=== PATIENT | female | born 1960 | race Caucasian/White ===

== ENCOUNTER 2016-06-08 11:47 | Emergency (ER) | payer MEDICAID, OTHER ==
--- NOTE | 2016-06-08 12:10 | ER Document Report ---
ED Medical Screen (RME) - General Stated Complaint: ARM PAIN Mode of Arrival: Ambulatory Information source: Patient Notes: Patient fell out of a truck 2 weeks ago. Patient complains of left upper extremity pain. hx: Pseudotumor cerebri I have greeted and performed a rapid initial assessment of this patient. A comprehensive ED assessment and evaluation of the patient, analysis of test results and completion of the medical decision making process will be conducted by additional ED providers. - Related Data Allergies/Adverse Reactions: ranitidine [From Zantac] Allergy (Verified 06/08/16 12:08) strawberry Allergy (Verified 06/08/16 12:08) Physical Exam - Extremities General upper extremity: Tender - Left upper extremity
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
[2016-06-08 14:20] VITALS: BP 131/80
== END 2016-06-08 14:14 | disposition home or self-care (01) ==
LOC: ER 11:47
DX: M79.602 Pain in left arm (principal); R03.0 Elevated blood-pressure reading, without diagnosis of hypertension; F17.210 Nicotine dependence, cigarettes, uncomplicated; X50.0XXA Overexertion from strenuous movement or load, initial encounter; I10 Essential (primary) hypertension
CPT/HCPCS: 99283

== ENCOUNTER 2017-01-31 15:02 | Emergency (ER) | payer OTHER, MEDICAID ==
[2017-01-31 15:12] VITALS: BP 134/87
[2017-01-31] MEDS ORDERED: ONDANSETRON 4 MG TAB.RAPDIS PO ONE (15:38)
[2017-01-31] MEDS ORDERED: HYDROCODONE/ACETAMINOPHEN 5-325 MG TABLET PO ONE (15:38)
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
== END 2017-01-31 17:28 | disposition home or self-care (01) ==
LOC: ER 15:02
DX: S46.911A Strain of unspecified muscle, fascia and tendon at shoulder and upper arm level, right arm, initial encounter (principal); S56.911A Strain of unspecified muscles, fascia and tendons at forearm level, right arm, initial encounter; S16.1XXA Strain of muscle, fascia and tendon at neck level, initial encounter; R51 Headache; M79.601 Pain in right arm; M54.2 Cervicalgia; R11.0 Nausea; V87.7XXA Person injured in collision between other specified motor vehicles (traffic), initial encounter; F17.200 Nicotine dependence, unspecified, uncomplicated
CPT/HCPCS: 99284; 73090; 73060; 70450; 72125; S0119

== ENCOUNTER 2017-04-09 09:56 | Day surgery (SDC) | payer MEDICAID ==
--- NOTE | 2017-04-06 10:53 | EKG REPORT ---
SEVERITY:- ABNORMAL ECG - SINUS RHYTHM INFERIOR INFARCT, OLD CONSIDER ANTERIOR INFARCT : Confirmed by: Tiff Estes 06-Apr-2017 10:53:02
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
[2017-04-06 12:12] LABS: ABSOLUTE EOSINOPHILS # (AUTO) 0.2 10^3/uL (0.0-0.6); ABSOLUTE LYMPHOCYTES (AUTO) 2.4 10^3/uL (0.5-4.7); ABSOLUTE MONOCYTES (AUTO) 0.7 10^3/uL (0.1-1.4); ABSOLUTE NEUT (AUTO) 7.2 10^3/uL (1.7-8.2); BASOPHILS % (AUTO) 0.4 % (0-2); EOSINOPHILS % (AUTO) 1.9 % (0-6); HEMATOCRIT 43.5 % (36.0-47.0); HEMOGLOBIN 14.4 g/dL (12.0-15.5); HGB HCT DIFFERENCE -0.3; LYMPHOCYTES % (AUTO) 22.9 % (13-45); MEAN CORPUSCULAR HEMOGLOBIN 30.6 pg (27.0-33.4); MEAN CORPUSCULAR VOLUME 93 fl (80-97); MONOCYTES % (AUTO) 6.8 % (3-13); RED BLOOD COUNT 4.69 10^6/uL (3.72-5.28); RED CELL DISTRIBUTION WIDTH 15.8 % (11.5-14.0); WHITE BLOOD COUNT 10.5 10^3/uL (4.0-10.5)
[2017-04-06 12:35] LABS: ANION GAP 13 (5-19); BLOOD UREA NITROGEN 9 mg/dL (7-20); CALCIUM 9.9 mg/dL (8.4-10.2); CARBON DIOXIDE 33 mmol/L (22-30); CHLORIDE 100 mmol/L (98-107); GLUCOSE 101 mg/dL (75-110); POTASSIUM 5.5 mmol/L (3.6-5.0); SODIUM 146.3 mmol/L (137-145)
[~2017-04-09 09:56] MED LIST: BUPIVACAINE HCL 0.5%/EPI 1:200000 INJ 1.8 ML CARTRIDGE ONE; LACTATED RINGERS 1000 ML IV PRN; LIDOCAINE 0.5% INJ-PF (5 MG/ML) 50 ML SDV SUBCUT PRN; LIDOCAINE 2%/EPINEPHRINE INJ 1.7 ML CARTRIDGE ONE
[2017-04-09] MEDS ORDERED: FENTANYL CITRATE INJ/PF 100 MCG/2 ML AMPUL ONE (11:21)
[2017-04-09] MEDS ORDERED: MIDAZOLAM 2 MG/2 ML INJ ONE (11:22)
[2017-04-09] MEDS ORDERED: HYDROMORPHONE HCL INJ/PF 2 MG/ML AMPULE ONE (11:22)
[2017-04-09] MEDS ORDERED: PROPOFOL INJ 200 MG/20 ML VIAL IV ONE (11:22)
[2017-04-09] MEDS ORDERED: ACETAMINOPHEN 100 ML IV ONE (11:22)
[2017-04-09] MEDS ORDERED: ALBUTEROL SULFATE 0.083% NEB 2.5 MG/3 ML AMPUL NEB ONE (11:48)
[2017-04-09] MEDS ORDERED: DEXMEDETOMIDINE INJ 80 MCG/20 ML VIAL IV ONE (12:34)
[2017-04-09] MEDS ORDERED: KETAMINE HCL INJ 500 MG/10 ML VIAL ONE (12:34)
[2017-04-09] MEDS ORDERED: LIDOCAINE 2%/EPINEPHRINE INJ 1.7 ML CARTRIDGE ONE (12:57)
[2017-04-09] MEDS ORDERED: MEPERIDINE HCL/PF INJ 25 MG/1 ML DISP.SYRIN IV PRN (13:13)
[2017-04-09] MEDS ORDERED: DIPHENHYDRAMINE HCL 50 MG/ML VIAL IV PRN (13:13)
[2017-04-09] MEDS ORDERED: PROMETHAZINE HCL INJ 25 MG/1 ML VIAL IV PRN ×2 (13:13)
[2017-04-09] MEDS ORDERED: ONDANSETRON HCL INJ/PF 4 MG/2 ML SDV IV PRN (13:13)
[2017-04-09] MEDS ORDERED: FENTANYL CITRATE INJ/PF 100 MCG/2 ML AMPUL IV PRN ×3 (13:13)
[2017-04-09] MEDS ORDERED: ONDANSETRON HCL INJ/PF 4 MG/2 ML SDV ONE ×2 (13:51→14:13)
[2017-04-09] MEDS ORDERED: LIDOCAINE 2% INJ-PF (20 MG/ML) 10 ML AMPUL ONE (14:00)
[2017-04-09] MEDS ORDERED: BUPIVACAINE HCL 0.5%/EPI 1:200000 INJ 1.8 ML CARTRIDGE ONE ×2 (14:05)
--- NOTE | 2017-04-09 14:34 | Brief Operative Note ---
BRIEF OPERATIVE REPORT DATE OF SURGERY: 04/09/17 TIME OF SURGERY: 12:57 PREOPERATIVE DIAGNOSIS: Nonrestorable dentition POSTOPERATIVE DIAGNOSIS: Same as preoperative diagnosis SURGEON: ARNULFO MACHADO FINDINGS: Severe decay with nonrestorable dentition COMPLICATIONS: No complications ESTIMATED BLOOD LOSS: Less than 10 mL's TISSUE REMOVED OR ALTERED: Nonrestorable teeth TECHNICAL PROCEDURE: Patient taken to main operating room #4. Patient was placed in a beachchair position after being transferred to the operating room table. Care of the patient was given to the anesthesia team. Limited monitored anesthesia care was initiated via peripheral IV and maintained via peripheral IV throughout the case. Once an adequate plane of anesthesia was reached local anesthetic consisting of 2% lidocaine with epinephrine 1-100,000, and Marcaine 0.5% with epinephrine 1-200,000 was infiltrated into the patient's posterior mandibular right vestibule as well as obtaining infiltration anesthesia of the maxillary bilateral anterior and posterior vestibules, as well as, the mandibular left anterior mandibular vestibule. Effectiveness of the local anesthetic was confirmed. A #15 blade was utilized to make a full- thickness mucoperiosteal incision extending from the distal of tooth #29 to approximately 3 mm anterior to tooth #22. A #2 for mold was then used to elevate a full-thickness mucoperiosteal flap exposing the facial aspect of teeth #'s29, 27-22 and the surrounding alveolar crest. . A #2 Molt periosteal elevator was utilized to extract the tip of tooth #29 in the standard fashion. A combination of the 301 elevator and the [employer] forcep was then utilized to extract teeth numbers 22 through 27. The extraction site was debrided irrigated and suctioned dry. A sidecutting rongure and a rasp were utilized to perform a alveoloplasty of the mandibular left and right alveolar ridges. The surgical sites were irrigated with copious sterile saline irrigation and suction dry. A 4-0 chromic suture in a baseball style application was used to reapproximate the soft tissue. The surgical site was inspected and irrigated suctioned dry and noted to be free of active hemorrhage or debris. Attention was then directed to the maxillary arch where a #15 santosh was used to elevate focused full thickness flap individually exposing the root tips of teeth #'s 2, 6, 11, 13, 14. Each tooth was removed with a #2 molt periosteal elevator and the extraction site closed with a 4.0 chromic gut suture. All surgical sites were irrigated and suctioned dry noted to be free of active hemorrage or debri. A knotted 4 x 4 surgical gauze was applied to the surgical sites. Occlusal pressure was then allowed to hold the gauze in place. Care of the patient was then returned to the anesthesia team who awakened the patient without complication. The patient was then transported to the postanesthesia care unit with stable vital signs having tolerated the procedure well.
[2017-04-09] MEDS ORDERED: HYDROCODONE/ACETAMINOPHEN 5-325 MG TABLET PO PRN (15:01)
[2017-04-09 17:01] VITALS: BP 116/70
== END 2017-04-09 16:30 | disposition home or self-care (01) ==
LOC: OROUT 09:56
PROVIDERS: ATTEND Dentist Oral and Maxillofacial Surgery
PROC: 0CDWXZ1 Extraction of Upper Tooth, Multiple, External Approach (ICD-10-PCS; 2017-04-09)
PROC: 0NQV0ZZ Repair Left Mandible, Open Approach (ICD-10-PCS; 2017-04-09)
PROC: 0NQT0ZZ Repair Right Mandible, Open Approach (ICD-10-PCS; 2017-04-09)
PROC: 0CDXXZ1 Extraction of Lower Tooth, Multiple, External Approach (ICD-10-PCS; principal; 2017-04-09 12:00)
DX: K02.9 Dental caries, unspecified (principal); K08.3 Retained dental root; G47.30 Sleep apnea, unspecified; G93.2 Benign intracranial hypertension; K21.9 Gastro-esophageal reflux disease without esophagitis; R51 Headache; G89.29 Other chronic pain; R73.03 Prediabetes; F17.210 Nicotine dependence, cigarettes, uncomplicated; J44.9 Chronic obstructive pulmonary disease, unspecified; R01.1 Cardiac murmur, unspecified; E03.9 Hypothyroidism, unspecified; Z88.5 Allergy status to narcotic agent; Z88.8 Allergy status to other drugs, medicaments and biological substances
CPT/HCPCS: 41899; 41874 ×2; 93005; 36415 ×2; 84132; 85025; 80048; 71020; 93010; J2250; J3490 ×4; J1170; J2405; J2704; J0131; 170; J3010

== ENCOUNTER → 2017-04-30 | Outpatient (CLI) | payer MEDICAID ==
--- NOTE | 2017-04-30 09:34 | RADIOLOGY REPORT (SQ) ---
EXAM DESCRIPTION: CHEST PA/LAT COMPLETED DATE/TIME: 04/30/2017 9:26 am REASON FOR STUDY: MILD INTERMITTENT ASTHMA, UNCOMPLICATED (J45.20) COMPARISON: None. EXAM PARAMETERS: NUMBER OF VIEWS: two views TECHNIQUE: Digital Frontal and Lateral radiographic views of the chest acquired. RADIATION DOSE: NA LIMITATIONS: none FINDINGS: LUNGS AND PLEURA: No opacities, masses or pneumothorax. No pleural effusion. MEDIASTINUM AND HILAR STRUCTURES: No masses or contour abnormalities. HEART AND VASCULAR STRUCTURES: Heart normal size. No evidence for failure. BONES: No acute findings. HARDWARE: Shunt tubing. OTHER: No other significant finding. IMPRESSION: NO SIGNIFICANT RADIOGRAPHIC FINDING IN THE CHEST. TECHNICAL DOCUMENTATION: JOB ID: [id number] [employer]- All Rights Reserved
== END ==
LOC: RAD 08:59
PROVIDERS: ATTEND Physician Assistant
DX: J45.20 Mild intermittent asthma, uncomplicated (principal)
CPT/HCPCS: 71020

== ENCOUNTER → 2017-07-16 | Outpatient (CLI) | payer MEDICAID ==
--- NOTE | 2017-07-16 08:52 | RADIOLOGY REPORT (SQ) ---
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 TECHNIQUE: Axial images acquired through the brain without and with intravenous contrast. Images re viewed with bone, brain and subdural windows. Images stored on PACS. All CT scanners at this facility use dose modulation, iterative reconstruction, and/or weight based d osing when appropriate to reduce radiation dose to as low as reasonably achievable (ALARA). [facility]: Dose Right [facility]: CareDose [facility]: Dose Right [facility]: Teradose 4D [facility]: [employer] CONTRAST TYPE AND DOSE: contrast/concentration: Isovue 370.00 mg/ml; Total Contrast Delivered: 50.0 ml; Total Saline Delivered: 55.0 ml RENAL FUNCTION: BUN 18 creatinine 0.64. RADIATION DOSE: CT Rad equipment meets quality standard of care and radiation dose reduction techniq ues were employed. CTDIvol: 49.0 mGy. DLP: 1566 mGy-cm.. LIMITATIONS: None. FINDINGS: VENTRICLES: Normal size and contour. Stable bilateral ventricular shunts. CEREBRUM: No masses. No hemorrhage. No midline shift. Normal chua/white matter differentiation. No ev idence for acute infarction. No enhancing lesions. CEREBELLUM: No masses. No hemorrhage. No alteration of density. No evidence for acute infarction. No enhancing lesions. EXTRA-AXIAL SPACES: No fluid collections. No enhancing lesions. ORBITS AND GLOBE: No intra- or extraconal masses. Normal contour of globe without masses. CALVARIUM: No fracture. PARANASAL SINUSES: No fluid or mucosal thickening. SOFT TISSUES: No mass or hematoma. OTHER: No other significant finding. IMPRESSION: NORMAL BRAIN CT WITHOUT AND WITH CONTRAST. STABLE BILATERAL VENTRICULAR SHUNTS. EVIDENCE OF ACUTE STROKE: NO. TECHNICAL DOCUMENTATION: JOB ID: [id number] Quality ID # [id number]: Final reports with documentation of one or more dose reduction techniques (e.g., Au tomated exposure control, adjustment of the mA and/or kV according to patient size, use of iterative reconstruction technique) 2010 [employer]- All Rights Reserved Reading location - IP/workstation name: [email or web address]
== END ==
LOC: RAD 08:06
PROVIDERS: ATTEND Physician Assistant
DX: G93.2 Benign intracranial hypertension (principal)
CPT/HCPCS: 70470

== ENCOUNTER 2018-01-08 08:07 | Day surgery (SDC) | payer MEDICAID ==
[2018-01-08] MEDS ORDERED: LIDOCAINE 2% INJ-PF (100 MG/5 ML) SYRINGE ONE (08:33)
[2018-01-08] MEDS ORDERED: PROPOFOL INJ 200 MG/20 ML VIAL IV ONE (08:33)
[2018-01-08] MEDS ORDERED: ALBUTEROL SULFATE 0.083% NEB 2.5 MG/3 ML AMPUL NEB ONE (08:49)
[2018-01-08] MEDS ORDERED: ONDANSETRON HCL INJ/PF 4 MG/2 ML SDV ONE (09:05)
[2018-01-08] MEDS ORDERED: DEXMEDETOMIDINE INJ 80 MCG/20 ML VIAL IV ONE (09:22)
[2018-01-08 09:48] LABS: POTASSIUM 4.4 mmol/L (3.6-5.0)
[2018-01-08] MEDS ORDERED: ACETAMINOPHEN 1,000 MG/100 ML RTUPB IV ONE (10:21)
[2018-01-08] MEDS ORDERED: ACETAMINOPHEN 325 MG TABLET PO PRN (10:25)
[2018-01-08] MEDS ORDERED: PROMETHAZINE HCL INJ 25 MG/1 ML VIAL IV PRN (10:26)
[2018-01-08] MEDS ORDERED: SIMETHICONE 80 MG TAB.CHEW PO PRN (10:26)
[2018-01-08] MEDS ORDERED: MEPERIDINE HCL/PF INJ 25 MG/1 ML DISP.SYRIN IV PRN (10:28)
[2018-01-08] MEDS ORDERED: DIPHENHYDRAMINE HCL 50 MG/ML VIAL IV PRN (10:28)
[2018-01-08] MEDS ORDERED: FENTANYL CITRATE INJ/PF 100 MCG/2 ML AMPUL IV PRN ×3 (10:28)
[2018-01-08] MEDS ORDERED: ONDANSETRON HCL INJ/PF 4 MG/2 ML SDV IV PRN (10:28)
[2018-01-08 11:27] VITALS: BP 111/64
--- NOTE | 2018-01-08 12:00 | Operative Report ---
Operative Report DATE OF SURGERY: 01/08/18 Operative Report: The risks, benefits and alternatives of the procedure including the risks of bleeding, perforation requiring surgery are explained to the patient in detail and informed consent is obtained. The patient is placed in the left, lateral decubital position. Timeout was called. Propofol medication is administered. A rectal examination is done which did not reveal any masses, tears or fissures. An Olympus videoscope was inserted into the patient's rectum. The scope was then carefully advanced all the way to the cecum. The cecum was identified by the usual anatomical landmarks including the ileocecal valve as well as the appendiceal office. Photodocumentation is obtained. The scope was then sequentially pulled back via the various segments of the colon including the ascending colon, hepatic flexure, transverse colon, splenic flexure, descending colon and finding to the rectosigmoid portions of the colon. Retroflexion maneuver is performed. The risks benefits and alternatives of the EGD are explained to the patient in detail and informed consent is obtained.A GIF Olympus video scope was inserted into the patient's mouth and hypopharynx, the esophagus is identified intubated and insufflated, the scope was then advanced through the esophagus stomach and duodenum, retroflexion maneuver is done, the esophagus stomach and first and second portions of the duodenum examined PREOPERATIVE DIAGNOSIS: Change in bowel habits. Gastroesophageal reflux disease POSTOPERATIVE DIAGNOSIS: Left and right-sided colon inflammation status post biopsy. Diverticulosis. Internal hemorrhoids. Gastritis status post biopsy rule out Helicobacter pylori OPERATION: Colonoscopy with biopsy. EGD with biopsy SURGEON: ARABELLA RAI ANESTHESIA: LMAC TISSUE REMOVED OR ALTERED: As noted above. COMPLICATIONS: None. ESTIMATED BLOOD LOSS: None. INTRAOPERATIVE FINDINGS: As noted above. PROCEDURE: Patient tolerated the procedure well. No immediate postprocedure complications are noted. Patient discharged in good condition. Discharge date 01/08/2018. Discharge diet: Regular. Discharge activity: Regular. 2-3 week follow-up to discuss findings. Patient is instructed call the office or proceed to the emergency room should there be any further problems or questions. Wait on the pathology.
--- NOTE | 2018-01-08 13:19 | EKG REPORT ---
SEVERITY:- BORDERLINE ECG - SINUS RHYTHM CONSIDER INFERIOR INFARCT BORDERLINE T ABNORMALITIES, ANTERIOR LEADS : Confirmed by: Bruno Gore MD 08-Jan-2018 13:18:44
== END 2018-01-08 11:30 | disposition home or self-care (01) ==
LOC: OROUT 08:07
PROVIDERS: ATTEND Internal Medicine Gastroenterology
DX: K52.9 Noninfective gastroenteritis and colitis, unspecified (principal); K57.30 Diverticulosis of large intestine without perforation or abscess without bleeding; K64.8 Other hemorrhoids; K31.9 Disease of stomach and duodenum, unspecified; K21.9 Gastro-esophageal reflux disease without esophagitis; F17.210 Nicotine dependence, cigarettes, uncomplicated; G93.2 Benign intracranial hypertension; J45.20 Mild intermittent asthma, uncomplicated; R73.03 Prediabetes; E03.9 Hypothyroidism, unspecified; E53.9 Vitamin B deficiency, unspecified; G47.30 Sleep apnea, unspecified; Z79.51 Long term (current) use of inhaled steroids; Z79.899 Other long term (current) drug therapy; Z88.8 Allergy status to other drugs, medicaments and biological substances; Z88.5 Allergy status to narcotic agent
CPT/HCPCS: 43239; 45380; 36415; 82947; 84132; 88342 ×2; 88305 ×2; 93005; 93010; J2001; J2405; J2704; J0131; J3490

== ENCOUNTER → 2018-02-18 | Outpatient (CLI) | payer MEDICAID ==
--- NOTE | 2018-02-18 15:36 | RADIOLOGY REPORT (SQ) ---
EXAM DESCRIPTION: VENOUS UNILATERAL LOWER COMPLETED DATE/TIME: 02/18/2018 3:23 pm REASON FOR STUDY: LLE PAIN M79.605 PAIN IN LEFT LEG COMPARISON: None. TECHNIQUE: Dynamic and static chua scale and color images acquired of the left leg venous system. Se lected spectral images acquired with additional compression and augmentation maneuvers. The contralat eral common femoral vein and saphenofemoral junction were also imaged. Images stored on PACS. LIMITATIONS: None. FINDINGS: COMMON FEMORAL: Normal phasicity, compression and augmentation. No visualized echogenic ma terial on chua scale. No defects on color images. FEMORAL: Normal compression and augmentation. No visualized echogenic material on chua scale. No defe cts on color images. POPLITEAL: Normal compression, augmentation. No visualized echogenic material on chua scale. No defec ts on color images. CALF VESSELS: Normal compression, augmentation. No visualized echogenic material on chua scale. No de fects on color images. GSV and SSV: Normal compression, augmentation. No visualized echogenic material on chua scale. No def ects on color images. ANY DEEP VENOUS INSUFFICIENCY: Not evaluated. ANY EVIDENCE OF POPLITEAL CYST: No. OTHER: No other significant finding. CONTRALATERAL COMMON FEMORAL VEIN AND SAPHENOFEMORAL JUNCTION: Normal phasicity, compression and augmentation. No visualized echogenic material on chua scale. No de fects on color images. IMPRESSION: NO EVIDENCE DVT OR SVT IN THE LEFT LEG. TECHNICAL DOCUMENTATION: JOB ID: [id number] [employer]- All Rights Reserved Reading location - IP/workstation name: [email or web address]
== END ==
LOC: SP 13:07
PROVIDERS: ATTEND Family Medicine
DX: M79.605 Pain in left leg (principal); M79.89 Other specified soft tissue disorders
CPT/HCPCS: 93971

== ENCOUNTER 2018-03-13 09:38 | Emergency (ER) | payer MEDICAID ==
--- NOTE | 2018-03-13 11:14 | ER Document Report ---
HPI - HPI Patient complains to provider of: left leg swelling Pain Level: 5 Context: Patient is a 57-year-old female presenting to the emergency department complaining of increased pain and swelling to her left leg. Patient states she has had pain and swelling in the left leg for over 2 months. States she has seen her primary care doctor Dr. Reynolds multiple times for same. States on she had a venous Doppler study which revealed no DVT in her left leg. I reviewed that study in our computer system. Negative DVT. Patient states she has an appointment with Dr. Gardiner who is a "vein specialist" on 03/31/2018. States for the last 2 days she has had increased pain in her left calf and swelling. Patient denies any shortness of breath or chest pain. Patient denies any change in color or temperature to the left leg. Patient is denying any trauma or recent injury to the left leg. 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 ARACELI RODRIGUEZ [place], Hx Hypertension Denies: Hx Heart Attack Pulmonary Medical History: Reports: Hx Asthma, Hx Bronchitis, Hx Pneumonia Denies: Hx COPD Neurological Medical History: Denies: Hx Cerebrovascular Accident, Hx Seizures Endocrine Medical History: Denies: Hx Diabetes Mellitus Type 1, Hx Diabetes Mellitus Type 2 Renal/ Medical History: Denies: Hx Peritoneal Dialysis Musculoskeletal Medical History: Reports Hx Arthritis - HANDS, KNEES, SPINAL Psychiatric Medical History: Reports: Hx Anxiety, Hx Depression Traumatic Medical History: Reports: Hx Fractures Past Surgical History: Reports: Hx Orthopedic Surgery, Other - psuedotumor, vp integrity shunt - Immunizations Hx Diphtheria, Pertussis, Tetanus Vaccination: Yes Vertical Provider Document - CONSTITUTIONAL Agree With Documented VS: Yes Notes: GENERAL: Alert, interacts well. No acute distress. HEAD: Normocephalic, atraumatic. EYES: Pupils equal, round, and reactive to light. Extraocular movements intact. ENT: Oral mucosa moist, tongue midline. NECK: Full range of motion. Supple. Trachea midline. LUNGS: Clear to auscultation bilaterally, no wheezes, rales, or rhonchi. No respiratory distress. HEART: Regular rate and rhythm. No murmur ABDOMEN: Soft, non-tender. Non-distended. Bowel sounds present in all 4 quadrants. EXTREMITIES: Moves all 4 extremities spontaneously. normal radial and dorsalis pedis pulses bilaterally. No cyanosis. Nonpitting edema noted left lower extremity below the knee to the foot. Skin is non-pallor and non-erythematous. Same temperature on palpation as the right lower extremity. Capillary refill less than 2 seconds. Pain upon palpation of left calf. BACK: no cervical, thoracic, lumbar midline tenderness. No saddle anesthesia, normal distal neurovascular exam. NEUROLOGICAL: Alert and oriented x3. Normal speech. cranial nerves II through XII grossly intact. PSYCH: Normal affect, normal mood. SKIN: Warm, dry, normal turgor. No rashes or lesions noted. - INFECTION CONTROL TRAVEL OUTSIDE OF THE [place] IN LAST 30 DAYS: No Course - Re-evaluation Re-evalutation: 03/13/18 12:22 Called radiology to discuss why venous Doppler had not been read by the radiologist. Recommend calling the ethylene plant operator to page Dr. Gardiner 03/13/18 12:[address] Gardiner over the phone who states the images are negative for DVT. Discussed with patient need to follow-up with primary care provider and "vein specialist" for which she already has an appointment for 03/31/2018. - Vital Signs Vital signs: Temp Pulse Resp BP Pulse Ox 97.8 F 77 18 167/85 H 98 03/13/18 09:43 03/13/18 09:43 03/13/18 09:43 03/13/18 09:43 03/13/18 09:43 Discharge - Discharge Clinical Impression: Left leg swelling Condition: Stable Disposition: HOME, SELF-CARE Additional Instructions: As we discussed your venous Doppler shows no signs of blood clots in your left leg. You need to continue to follow-up with your primary care provider and the vein specialist for which you are he said he had an appointment with. Please return to the emergency room for any other concerning symptoms. Referrals: YIMI REYNOLDS, [Primary Care Provider] - Follow up as needed
[2018-03-13 12:41] VITALS: BP 158/78
--- NOTE | 2018-03-13 13:58 | XCELERA REPORT ---
[address] [facility] [address] [facility] Ext[facility] Venous Evaluation Procedure: Color flow and duplex imaging of the veins of the left lower extremity as well as the right Common Femoral vein. Right Sided Venous Evaluation The right common femoral vein is fully compressible. Spontaneous and phasic flow is present in the right common femoral vein. Left Sided Venous Evaluation Normal vessel filling wall to wall, compression and augmentation as well as Colour flow down to the infrageniculate veins. Critical Findings Called in to the ER at about 1200. Interpretation Summary No duplex evidence of DVT or obstruction in the left lower extremity nor in the right Common Femoral vein. Name: EDEL MCCARTY Age: 57 yrs Gender: Female : 1960 Patient Status: Emergency Patient Location: ER Study Date: 03/13/2018 10:38 AM Reason For Study: left leg swelling Ordering Physician: KALA KAUR PA-C Performed By: Alejandra Velásquez : KALA KAUR PA-C > Nakul Gardiner
== END 2018-03-13 12:40 | disposition home or self-care (01) ==
LOC: ER 09:38
DX: R22.42 Localized swelling, mass and lump, left lower limb (principal); F17.200 Nicotine dependence, unspecified, uncomplicated; I25.10 Atherosclerotic heart disease of native coronary artery without angina pectoris; I10 Essential (primary) hypertension; Z98.2 Presence of cerebrospinal fluid drainage device
CPT/HCPCS: 93971; 99284

== ENCOUNTER → 2018-07-13 | Outpatient (CLI) | payer MEDICAID ==
--- NOTE | 2018-07-13 17:04 | WOMENS IMAGING REPORT ---
EXAM DESCRIPTION: BILAT SCREENING MAMMO W/CAD COMPLETED DATE/TIME: 07/13/2018 2:02 pm REASON FOR STUDY: Z12.31 ENCOUNTER FOR SCREENING MAMMOGRAM FOR MALIGNANT NEOPLASM OF BREAST Z12.31 ENCNTR SCREEN MAMMOGRAM FOR MALIGNANT NEOPLASM OF CATHY COMPARISON: No previous TECHNIQUE: Standard craniocaudal and mediolateral oblique views of each breast recorded using digita l acquisition. LIMITATIONS: None. FINDINGS: No masses, calcifications or architectural distortion. No areas of suspicion. Read with the assistance of CAD. .[facility] - R2 C[employer] Version 1.3 .[facility] - R2 Cenova Version 2.1 .[facility] - R2 Cenova Version 2.4 .[facility] R2 C[employer]ova Version 2.4 .[facility] - R2 [employer] Version 9.2 IMPRESSION: NORMAL MAMMOGRAM. BIRADS 1. BREAST DENSITY: a. The breasts are almost entirely fatty. BIRAD: 1 NEGATIVE RECOMMENDATION: ROUTINE SCREENING COMMENT: The patient has been notified of the results by letter per SA requirements. Additional no tification policies are in place for contacting patient with suspicious or incomplete findings. Quality ID #[id number]: The [employer] recommends an annual screening mammogram for women aged 40 years or over. This facility utilizes a reminder system to ensure that all patients receive reminder letters, and/or direct phone calls for appointments. This includes reminders for routine scr eening mammograms, diagnostic mammograms, or other Breast Imaging Interventions when appropriate. Th is patient will be placed in the appropriate reminder system. The [employer] (ACR) has developed recommendations for screening MRI of the breast s in certain patient populations, to be used in conjunction with mammography. Breast MRI surveillanc e may be appropriate for women with more than 20% lifetime risk of developing breast cancer as deter mined by genetic testing, significant family history of the disease, or history of mantle radiation f or Hodgkins Disease. ACR Practice Guidelines 2008. TECHNICAL DOCUMENTATION: FINDING NUMBER: (1) ASSESSMENT: (1) JOB ID: [id number] [employer]- All Rights Reserved Reading location - IP/workstation name: [email or web address]
== END ==
LOC: WI 13:28
PROVIDERS: ATTEND Family Medicine
DX: Z12.31 Encounter for screening mammogram for malignant neoplasm of breast (principal); E04.1 Nontoxic single thyroid nodule
CPT/HCPCS: 77067

== ENCOUNTER → 2018-07-22 | Outpatient (CLI) | payer MEDICAID ==
--- NOTE | 2018-07-22 13:30 | RADIOLOGY REPORT (SQ) ---
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 TECHNIQUE: Dynamic and static chua-scale images acquired of the thyroid gland. Selected additional c olor/power Doppler images recorded. All images stored to PACS. LIMITATIONS: None. FINDINGS: RIGHT LOBE: Normal size, 4.9 x 1.3 x 1.6 cm. Heterogeneous echotexture. No definable mas s. LEFT LOBE: Normal size, 3.1 x 1.3 x 1.2 cm. Heterogeneous. No definable mass. ISTHMUS: Normal size, 4.4 mm. Heterogeneous. No definable mass. OTHER: There appears to be a small lymph node in the area indicated by the patient on the right side of the neck. This measures 1.9 x 1.8 x 0.7 cm. IMPRESSION: Thyroid gland is somewhat heterogeneous in echotexture. No definable mass is seen. The re is a small lymph node in the right side of the neck. TECHNICAL DOCUMENTATION: JOB ID: [id number] [employer]- All Rights Reserved Reading location - IP/workstation name: [email or web address]
== END ==
LOC: RAD 10:45
PROVIDERS: ATTEND Family Medicine
DX: E04.1 Nontoxic single thyroid nodule (principal)
CPT/HCPCS: 76536

== ENCOUNTER → 2018-08-24 | Outpatient (CLI) | payer MEDICAID ==
--- NOTE | 2018-08-24 10:51 | RADIOLOGY REPORT (SQ) ---
EXAM DESCRIPTION: CT SOFT TISSUE NECK WITH COMPLETED DATE/TIME: 08/24/2018 9:20 am REASON FOR STUDY: LYMPHADENOPATHY OF HEAD AND NECK (R59.1) R59.1 GENERALIZED ENLARGED LYMPH NODES COMPARISON: CT brain 07/16/2018 Thyroid ultrasound 07/22/2018 CT cervical spine 01/31/2017 TECHNIQUE: Post IV contrasted scanning from skull base through lung apices with review of bone, soft tissue and lung windows. Reconstructed coronal and sagittal MPR images reviewed. All images stored on PACS. All CT scanners at this facility use dose modulation, iterative reconstruction, and/or weight based d osing when appropriate to reduce radiation dose to as low as reasonably achievable (ALARA). [facility]: Dose Right [facility]: CareDose [facility]: Dose Right [facility]: Teradose 4D [facility]: [email or web address] CONTRAST TYPE AND DOSE: contrast/concentration: Isovue 350.00 mg/ml; Total Contrast Delivered: 75.0 ml; Total Saline Delivered: 55.0 ml RENAL FUNCTION: Creatinine 0.6 RADIATION DOSE: 24.6 mGy . LIMITATIONS: None. FINDINGS: SKULL BASE: Inferior brain parenchyma unremarkable. Patient has a right parietal and left frontal ventriculoperitoneal shunt, incompletely included in the field of view. No hydrocephalus. MAJOR SALIVARY GLANDS: No solid or cystic masses. No inflammatory changes. LYMPHADENOPATHY: No adenopathy. MUCOSAL MASSES OR ASYMMETRY: No mucosal masses or asymmetry. LARYNX/CORDS: No abnormal findings. VASCULAR STRUCTURES: The major vessels are patent. LUNG APICES: Clear. BONES: Intact. THYROID: Normal size. No masses. PARANASAL SINUSES: Left maxillary sinus mucus or serous retention cyst OTHER: No other significant finding. IMPRESSION: NO SIGNIFICANT FINDING IN THE SOFT TISSUES OF THE NECK. TECHNICAL DOCUMENTATION: JOB ID: [id number] Quality ID # [id number]: Final reports with documentation of one or more dose reduction techniques (e.g., Au tomated exposure control, adjustment of the mA and/or kV according to patient size, use of iterative reconstruction technique) 2010 [employer]- All Rights Reserved Reading location - IP/workstation name: [email or web address]
== END ==
LOC: RAD 08:30
PROVIDERS: ATTEND Family Medicine
DX: R59.1 Generalized enlarged lymph nodes (principal)
CPT/HCPCS: 70491; 82565